=== PATIENT | male | born 1995 | race Asian ===

== ENCOUNTER 2017-01-31 09:38 | Emergency (ER) | payer OTHER ==
[2017-01-31 09:48] VITALS: BP 119/78; PULSE 63; RESP 18; TEMP 98.1; O2SAT 98
[2017-01-31] MEDS ORDERED: ONDANSETRON DISINTEGRATING 4 MG TAB PO ONE (10:10)
--- NOTE | 2017-01-31 10:20 | EDPHY ---
ED Progress Note Narrative: Went to patient's room at 10:15 a.m. and patient was no longer there. Informed by the nurse that patient had decided to leave without treatment and go to an urgent care instead of this emergency room.
== END 2017-01-31 10:20 | disposition left against medical advice (07) ==
DX: Z53.21 Procedure and treatment not carried out due to patient leaving prior to being seen by health care provider (principal)